=== PATIENT | male | born 1940 | race Caucasian/White ===

== ENCOUNTER → 2016-08-13 | Outpatient (CLI) | payer MEDICARE ==
--- NOTE | 2016-08-13 14:12 | MRI ---
EXAM DESCRIPTION: Lumbar Spine w/o Contrast CLINICAL HISTORY: DISC DISPLACEMENT COMPARISON: June 01, 2007 TECHNIQUE: MRI of the lumbar spine is performed according to our usual protocol with axial and sagittal multi sequence imaging. FINDINGS: Vertebral body height and marrow signal are normal. There is disc desiccation at every level with intervertebral disc height loss from L3-4 through L5-S1. Laminectomies of L3-4 and L4-5 noted. Conus terminates at L1. It appears unremarkable. Likely aneurysm of the infrarenal abdominal aorta which is incompletely visualized on today's study. It measures 4 cm in diameter. L1-L2: 3 mm circumferential disc osteophyte complex, facet degeneration and ligamentum flavum thickening noted. The midline diameter of the spinal canal is narrowed to 8 mm. Mild bilateral neural foraminal narrowing noted. L2-3: Circumferential disc osteophyte complex, ligamentum flavum thickening and facet degeneration noted. The midline diameter of the spinal canal is narrowed to 8.5 mm. There is mild left neural foraminal narrowing. L3-4: Laminectomy noted. The AP diameter of the thecal sac is widely patent measuring 1.5 cm. There is bilateral facet degeneration. There is a synovial cyst which projects medially from the left facet. This measures approximately 8 mm x 6 mm in diameter. It narrows the transverse diameter of the thecal sac to approximately 8.6 mm. There is moderate left and right neural foraminal narrowing. No definitive exiting nerve root contact. L4-5: Laminectomy noted. Circumferential disc osteophyte complex. There is peripheralization of the nerve roots which can be seen in the setting of arachnoiditis. Moderate bilateral neural foraminal narrowing noted. L5-S1: Facet degeneration and a 4 mm circumference of disc osteophyte complex with posterior central annular tear. Likely small synovial cyst projecting in the lateral recess from the left medial facet. The midline diameter of the spinal canal is adequate at 12 mm. There is moderate bilateral neural foraminal narrowing with contact of the bilateral L5 nerve roots. There is contact of the left descending S1 nerve root due to narrowing of the left lateral recess. IMPRESSION: 1. Today's exam demonstrates evidence of previous L3-4 and L4-5 laminectomies. While the thecal sac is widely patent at these levels there is suggestion of peripheralization of the nerve roots which can be seen in setting of arachnoiditis. 2. Please see above for additional findings including descriptions of descending and exiting nerve root contact. These findings could result in radiculopathy. The patient is symptomatic. Electronically signed by: Bruce Acosta MD 08/13/2016 2:12 PM IMMIGRATION CASE WORKER
== END | disposition home or self-care (01) ==
LOC: MRI 10:00
PROVIDERS: ATTEND Family Medicine
DX: M51.27 Other intervertebral disc displacement, lumbosacral region (principal)

== ENCOUNTER → 2016-09-21 | Outpatient (CLI) | payer MEDICARE | LOC: YCFC.O 11:07 | PROVIDERS: ATTEND Anesthesiology Pain Medicine | DX: Z79.891 Long term (current) use of opiate analgesic (principal) ==

== ENCOUNTER 2016-10-19 11:00 | Day surgery (SDC) | payer MEDICARE ==
[2016-10-19] MEDS ORDERED: methylPREDNISolone ACETATE 80 MG/ML VIAL ONE (11:13)
[2016-10-19] MEDS ORDERED: SODIUM CHLORIDE 0.9% 10 ML VIAL ONE (11:13)
[2016-10-19] MEDS ORDERED: SODIUM BICARBONATE VIAL 50 MEQ/50 ML VIAL ONE (11:13)
[2016-10-19] MEDS: LIDOCAINE 1% MPF 5 ML VIAL ONE ×2 (12:40→12:42)
[2016-10-19 12:53] VITALS: BP 207/99; TEMP 97.9; O2SAT 97
== END 2016-10-19 13:05 | disposition home or self-care (01) ==
LOC: AMB 11:00
PROVIDERS: ATTEND Anesthesiology Pain Medicine
DX: M96.1 Postlaminectomy syndrome, not elsewhere classified (principal); M54.16 Radiculopathy, lumbar region; F17.210 Nicotine dependence, cigarettes, uncomplicated; Z88.0 Allergy status to penicillin; Z88.8 Allergy status to other drugs, medicaments and biological substances
CPT/HCPCS: 62323; 76000; J1030

== ENCOUNTER 2016-11-16 05:40 | Day surgery (SDC) | payer MEDICARE ==
[2016-11-16] MEDS ORDERED: SODIUM BICARBONATE VIAL 50 MEQ/50 ML VIAL ONE (10:14)
[2016-11-16] MEDS ORDERED: SODIUM CHLORIDE 0.9% 10 ML VIAL ONE (10:14)
[2016-11-16] MEDS ORDERED: methylPREDNISolone ACETATE 80 MG/ML VIAL ONE (10:14)
[2016-11-16] MEDS: LIDOCAINE 1% MPF 5 ML VIAL ONE ×2 (14:05→14:06)
[2016-11-16 14:15] VITALS: BP 188/107; TEMP 96.7; O2SAT 99
== END 2016-11-16 14:15 | disposition home or self-care (01) ==
LOC: AMB 05:40
PROVIDERS: ATTEND Anesthesiology Pain Medicine
DX: M51.16 Intervertebral disc disorders with radiculopathy, lumbar region (principal); M96.1 Postlaminectomy syndrome, not elsewhere classified; F17.210 Nicotine dependence, cigarettes, uncomplicated; Z88.0 Allergy status to penicillin; Z88.8 Allergy status to other drugs, medicaments and biological substances; Z79.899 Other long term (current) drug therapy
CPT/HCPCS: 62323; 76000; J1030

== ENCOUNTER → 2017-09-27 | Outpatient (CLI) | payer MEDICARE | LOC: GMAJ 16:54 | PROVIDERS: ATTEND Family Medicine | DX: Z12.5 Encounter for screening for malignant neoplasm of prostate (principal) ==

== ENCOUNTER 2018-12-09 08:43 | Observation (INO) | payer MEDICARE ==
--- NOTE | 2018-12-09 10:21 | CT ---
EXAM DESCRIPTION: Head CLINICAL HISTORY: left leg paresthesias COMPARISON: None TECHNIQUE: Noncontrast transaxial CT images of the head are obtained from base to vertex. This exam was performed according to our departmental dose-optimization program, which includes automated exposure control, adjustment of the mA and/or kV according to patient size and/or use of iterative reconstruction technique. FINDINGS: The midline structures are not displaced. Sulci are age-appropriate. There are areas of decreased attenuation in the periventricular white matter and the white matter of the centrum semiovale. There is no evidence of mass, mass-effect, hydrocephalus, or acute intracranial hemorrhage. No abnormal extra axial fluid collection is seen. Bone windows show no evidence of depressed skull fracture. Moderate calcifications of the intracranial carotid arteries. The visualized paranasal sinuses are unremarkable. IMPRESSION: 1. Age-appropriate atrophy with evidence of old small vessel ischemic type changes seen. 2. No acute abnormality is seen on noncontrast CT of the head. Electronically signed by: Crow Osorio MD 12/09/2018 10:19 AM CDT
--- NOTE | 2018-12-09 10:27 | CT ---
EXAM DESCRIPTION: Lumbar Spine CLINICAL HISTORY: left leg paresthesias COMPARISON: None TECHNIQUE: Non contrast transaxial CT images of the lumbar spine are obtained with coronal and sagittal reconstructed images. This exam was performed according to our departmental dose-optimization program, which includes automated exposure control, adjustment of the mA and/or kV according to patient size and/or use of iterative reconstruction technique . FINDINGS: GENERAL Lumbar vertebral body heights are maintained. Osseous structures are diffusely osteopenic. Straightening of the normal lumbar lordosis is seen. Moderate to severe anterior disc bulging and marginal endplate osteophytes throughout the lower thoracic to lumbar spine are seen. Infrarenal abdominal aortic aneurysm status post endograft placement with [place] [employer] [place] aneurysm sac measures 4.2 cm. Recommend follow-up imaging per endograft protocol. Dilatation of the distal thoracic to proximal abdominal aorta measures 3.3 cm. L1-2 Mild posterior disc space narrowing, mild facet arthrosis. Broad-based disc bulge. Mild spinal canal stenosis and mild bilateral foraminal encroachment is seen. L2-3 Moderate posterior disc space narrowing with moderate bilateral facet arthrosis results in mild spinal canal stenosis and mild bilateral foraminal encroachment. L3-4 Severe disc space narrowing and vacuum disc with endplate sclerotic changes. Moderate facet hypertrophic and degenerative changes are seen. Resection of ligamentum flavum suspected. Posterior circumferential disc osteophytic ridging is seen. No spinal canal stenosis. At least moderate bilateral foraminal encroachment is seen. L4-5 Severe posterior disc space narrowing and sclerotic endplate changes with mild vacuum disc. L4 laminectomy changes. Mild facet hypertrophic and degenerative changes. No spinal canal stenosis. Moderate to severe bilateral bony foraminal encroachment is seen. L5-S1 Moderate diffuse disc space narrowing and vacuum disc. Posterior circumferential ridging disc osteophyte complex and mild facet hypertrophic and degenerative changes. Mild spinal canal stenosis is seen with severe left greater than right foraminal encroachment. IMPRESSION: Moderate to severe disc degenerative changes and facet arthropathy of the lumbar spine most significant from L3 through S1. L4 laminectomy changes. Severe bilateral L5-S1 and moderate to severe bilateral L4-5 foraminal encroachment is seen. Abdominal aortic endograft in place. Recommend follow-up imaging per endograft protocol. Electronically signed by: Crow Osorio MD 12/09/2018 10:25 AM CDT
--- NOTE | 2018-12-09 10:43 | ED.PDOC ---
History of Present Illness - General Chief Complaint: Cardiovascular Problem Stated Complaint: left leg Time Seen by Provider: 12/09/18 08:52 Source: patient, RN notes reviewed, Vital Signs reviewed Exam Limitations: no limitations - History of Present Illness Initial Comments: 78 yo male c/o altered sensations to his left leg. Denies having leg weakness. States he was asymptomatic when he went to be last night & woke up with it this morning. No previous episodes. 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 Timing/Duration: 1-3 hours Severity: mild Improving Factors: nothing Worsening Factors: nothing Associated Symptoms: denies symptoms Allergies/Adverse Reactions: Allergies Cyclobenzaprine [From Flexeril] Allergy (Unknown, Verified 12/09/18 08:56) Iodine Allergy (Unknown, Verified 12/09/18 08:56) Penicillin G Allergy (Unknown, Verified 12/09/18 08:56) Home Medications: Ambulatory Orders Gabapentin 900 mg PO BEDTIME 11/10/14 Gabapentin [Neurontin] 600 cap PO BID 11/10/14 Tizanidine HCl [Zanaflex] 4 mg PO TID PRN 11/10/14 Tramadol HCl 50 mg PO TID PRN 12/09/18 Review of Systems - Review of Systems Constitutional: States: no symptoms reported EENTM: States: no symptoms reported Respiratory: States: no symptoms reported Cardiology: States: no symptoms reported Gastrointestinal/Abdominal: States: no symptoms reported Genitourinary: States: no symptoms reported Musculoskeletal: States: no symptoms reported. Denies: back pain, neck pain Skin: States: no symptoms reported Neurological: States: see HPI Hematologic/Lymphatic: States: no symptoms reported Past Medical History (General) - Patient Medical History Hx Seizures: No Hx Stroke: No Hx Asthma: No Hx of COPD: No Hx Cardiac Disorders: No Hx Congestive Heart Failure: No Hx Pacemaker: No Hx Hypertension: No Hx Diabetes: No Hx MRSA: No MRSA Source:: Wound Surgical History: other - Social History Hx Tobacco Use: Yes Hx Alcohol Use: No Hx Substance Use: No Hx Physical Abuse: No Hx Emotional Abuse: No Family Medical History - Family History Father Family History: Unknown Living Status: Hx Family;Other: unknown family histroy Physical Exam - Physical Exam General Appearance: Alert, Comfortable, No apparent distress Eye Exam: bilateral normal ENT Exam: normal ENT inspection Neck: supple Respiratory: lungs clear, normal breath sounds, no respiratory distress Cardiovascular/Chest: regular rate, rhythm, no edema Gastrointestinal/Abdominal: non tender, soft Back Exam: normal inspection, no vertebral tenderness Extremities Exam: non-tender, normal range of motion, no evidence of injury 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 12/09/18 11:13 I have spoken with tele-radiology & Dr. Martin. We have all rec. admissiom the neuro sxs & BP. He declines. 12/09/18 11:32 Patient now consents to hospitalization here. I have discussed it with Violetta Huff NP. - Results/Orders Results/Orders: Cr 1.82 ESR 32 CRP 0.7 - EKG/XRAY/CT EKG: Sinus, no ST T wave changes - NSR @ 85; LAD; nml intervals, QRS, ST segments & T waves CT Ordered: Yes - no acute process brain or L-spine - Consult/PCP Time Called: 10:50 - tele-neuro Consult Reason/Comments: rec transfer Departure - Departure Clinical Impression: Paresthesia of left lower extremity Hypertension Qualifiers: Hypertension type: unspecified Qualified Code(s): I10 - Essential (primary) hypertension Time of Disposition: 11:33 Disposition: Admit Patient Condition: Fair Home Medications: Ambulatory Orders Gabapentin 900 mg PO BEDTIME 11/10/14 Gabapentin [Neurontin] 600 cap PO BID 11/10/14 Tizanidine HCl [Zanaflex] 4 mg PO TID PRN 11/10/14 Tramadol HCl 50 mg PO TID PRN 12/09/18 Decision To Admit - Decistion To Admit Decision to Admit Reason: Admit from ER - uncontrolled HTN; left leg paresthesia Decision to Admit Date: 12/09/18 Decision to Admit Time: 11:34
[2018-12-09] MEDS ORDERED: cloNIDine HCL 0.1 MG TAB PO ONE (11:12)
--- NOTE | 2018-12-09 12:11 | HP ---
SUPERVISING PHYSICIAN: Dima Martin MD CHIEF COMPLAINT: Left leg pain and numbness as well as stroke-like symptoms. HISTORY OF PRESENT ILLNESS: This is a 78 year-old male patient who had been in his usual state of health and this morning he woke up and had altered sensations to his left leg. He was asymptomatic when he went to bed last night and woke up this morning with severe leg pain. He said it was numb and he felt like he could not walk on it. In the ambulance he was given some aspirin and nitroglycerin due to his systolic blood pressure being in the 200s and his diastolic blood pressure being in the 100s. He does have a long history of low back pain with radiculopathy. Initially, he was treated for stroke-like symptoms in the Emergency Room and there his vital signs on admission to the Emergency Room were temperature of 97.8, heart rate 93, blood pressure 182/102. His blood pressure went up to 207/112 and 211/123. His respiratory rate was 20, 02 saturation 92%on room air. Lab was drawn as well as had a head CT. The head CT shows: 1. Age appropriate atrophy with evidence of old small vessel ischemic type change is seen. 2. No acute abnormality see on non-contrast CT of the head. Lumbar spine CT shows moderate to severe degenerative changes seen and facet arthropathy of the lumbar spine, most significant for L3 through S1. L4 laminectomy changes, severe bilateral L5 to S1 and moderate to severe bilateral L4 to 5, foraminal encroachment seen. Abdominal aortic endograft in place. LABORATORY: WBC 10,000 with hemoglobin 15.4 and hematocrit 45.4. He had an ESR of 32. Electrolytes were basically unremarkable but BUN 29, creatinine 1.82. Liver enzymes were within normal limits. Urinalysis showed urine pH of H urine leukocyte esterase or small and 10 to 20 urine WBCs. He was given some Clonidine in the Emergency Room as well as some pain medication. His blood pressure did come down to the 180s over 90s. Neuro Telemed was contacted and they recommended that he be transferred to a larger hospital for a neurological workup. The patient refused. The Emergency Room doctor called his primary care physician, Dr. Dima Martin, and initially the patient refused to be admitted but after Dr. Martin talked to the patient's daughter he said that he would be admitted. He was admitted to monitor his neurological changes as well as to treat him for his hypertensive crisis. PAST MEDICAL HISTORY: 1. Abdominal aortic aneurysms.\ 2. Chronic renal insufficiency.. 3. Chronic obstructive pulmonary disease. 4. Hypertension. 5. Lumbar disk disease. 6. Lumbar radiculopathy. 7. Lumbar spondylosis. 8. Carotid artery stenosis. PAST SURGICAL HISTORY: 1. Umbilical hernia repair. 2. Abdominal aortic aneurysm repair. . 3. Lumbar spine surgery. 4. Right renal stent. 5. Appendectomy. OUTPATIENT MEDICATIONS: 1. Gabapentin. 2. Albuterol. 3. Tramadol. 4. Zanaflex. ALLERGIES: FLEXERIL, PENICILLIN. FAMILY HISTORY: Positive for renal failure and hypertension. SOCIAL HISTORY: He is with 3 children. He is retired, he lives in [place]. He smokes approximately one-half pack of cigarettes daily. He denies any ETOH or illicit drug use. REVIEW OF SYSTEMS: GENERAL: Negative for fever, fatigue or weight changes. HEENT: Negative for sinus symptoms, ear pain, vision changes or sore throat. RESPIRATORY: Negative for wheezing, coughing or shortness of breath. CARDIAC: Negative for chest pain, palpitations or tachycardia. GASTROINTESTINAL: Negative for nausea, vomiting, diarrhea, constipation. GENITOURINARY: Negative for hematuria, dysuria or polyuria. MUSCULOSKELETAL: Positive for back pain, negative for arthralgias, myalgias. NEUROLOGIC: As per history of present illness. SKIN: Negative for lesions or rashes. PHYSICAL EXAMINATION: VITAL SIGNS: Temperature 98.2, heart rate 98, blood pressure 176/92, respiratory rate 18, 02 saturation 98% on room air. GENERAL: This is a 78 year-old male patient who is sitting on his hospital bed. He is in no acute disease. HEENT: Normocephalic and atraumatic. Pupils are equal and reactive. His oropharynx is clear. NECK: Supple without mass. CHEST: Essential clear to auscultation bilaterally. There is equal rise and fall of the chest with inspiration and expiration. CARDIOVASCULAR: Regular rate and rhythm. ABDOMEN: Soft, nondisplaced, non-tender. Bowel sounds are positive. EXTREMITIES: No cyanosis, clubbing, or edema. His left leg is slightly bigger than his right leg. 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 He does complain of pain along the left outer leg that extends across the kneecap and across the front of his left lower leg that is consistent with the L4 and L5 dermatomes. Skin is warm and dry. BACK: Normal inspection. There is no tenderness. NEUROLOGIC: He is alert and oriented x3. Cranial nerves II through XII are grossly intact. Labs and films are as per the history of present illness. His carotid artery ultrasound shows: 1. Doppler evaluation of the bilateral carotids and vertebral arteries shows no hemodynamically significant stenosis, less than 45% diameter stenosis proximal left ICA. 2. Minimal amount of plaque seen in the carotid arteries bilaterally. Bilateral vertebral arteries show antegrade cephalad flow. All other labs and films have been reviewed via the EMR. ASSESSMENT: 1. Hypertensive crisis. 2. Leg pain and numbness, most likely neurologic pain origin. His pain is consistent with left L3, L4 and L5 injury. 3. History of lumbar radiculopathy on Neurontin. 4. Chronic low back pain. 5. History of abdominal aortic aneurysm with repair. 6. Chronic obstructive pulmonary disease without signs or symptoms of exacerbation. 7. Tobacco abuse. 8. Mild urinary tract infection. PLAN: We will place the patient in observation. He will have Clonidine as needed for his elevated blood pressure. I will start him on 10 mg of lisinopril. He will need a full workup from his primary care physician, Dr. Martin. I have also increased his Neurontin to 900 mg in the morning and in the afternoon and 1200 mcg at h.s. We discussed smoking cessation and I put patient on nebulizer treatments, both a.c. and h.s. His home medications were restarted. He will also receive a dose of Rocephin for his urinary tract infection and will await the cultures and monitor those as the results become available. He has also been on neuro checks and we will reevaluate his clinical condition in the morning, hopefully he can be discharged home with close followup with Dr. Martin as well as neurologist, Dr. Wade in [place]. He has PPI for ulcer prophylaxis as well as Lovenox for DVT prophylaxis and will continue to monitor closely and follow as needed. #[id number] [facility] [place] [facility]
[2018-12-09] MEDS ORDERED: SODIUM CHLORIDE 0.9% (FLUSH) 10 ML SYG IV PRN (13:08)
[2018-12-09] MEDS ORDERED: IV SET AND CAP CHANGE INJ INJ SCH (13:30)
[2018-12-09] MEDS ORDERED: traMADol HCL 50 MG TAB PO PRN (13:31)
[2018-12-09] MEDS ORDERED: tiZANidine 4 MG TAB PO PRN (13:31)
[2018-12-09] MEDS: LISINOPRIL 10 MG TAB PO SCH (13:57)
[2018-12-09] MEDS: ENOXAPARIN SODIUM 30 MG/0.3 ML SYG SUBCU SCH (13:57)
[2018-12-09] MEDS ORDERED: GABAPENTIN 300 MG CAP PO SCH ×3 (15:00→21:00)
--- NOTE | 2018-12-09 16:23 | US ---
EXAM DESCRIPTION: Carotid Duplex: ULTRASOUND. CLINICAL HISTORY: 78 years Male Tia COMPARISON: CT scan of the head today. TECHNIQUE: Transcutaneous scanning utilizing alejo-scale and Doppler modes to evaluate the bilateral carotid systems and vertebral arteries. Percentage of diameter of stenosis or no stenosis recorded will be based upon NASCET criteria. FINDINGS: Peak systolic/end diastolic (CM-Sec) CCA Right 57/13 Left 55/15. ICA Right proximal 49/16, distal 51/19. Left proximal 62/15, distal 63/14. Vertebral Right 44/12 Left 36/12. ECA (PS Only) Right 64 left 68. ICA/CCA peak systolic ratio: Right 0.9 Left 1.0 ICA/CCA end diastolic ratio: Right 1.5 Left 0.7 Vertebral arteries: antegrade flow. Comments: Atherosclerotic calcifications in the distal common carotid bulbs and proximal ICAs bilaterally. Spectral broadening in the proximal and mid left ICA. Diameter and area stenosis of the left common carotid bulb is 45% or less. Area and diameter stenosis of the distal left CCA is less than 25%. IMPRESSION: 1. Doppler evaluation of the bilateral carotid systems and vertebral arteries shows no hemodynamically significant stenoses.. Less than 45% diameter stenosis proximal left ICA 2. Minimal amount of plaque seen in the carotid arteries bilaterally. Bilateral vertebral arteries showed antegrade-cephalad flow. Electronically signed by: Donnie Carvajal MD 12/09/2018 4:21 PM CDT
[2018-12-09] MEDS ORDERED: HYDROcodone 5MG/APAP 325MG 1 EA TAB PO PRN (17:11)
[2018-12-09] MEDS ORDERED: HYDROcodone 5MG/APAP 325MG 1 EA TAB ONE (17:25)
[2018-12-09] MEDS: HYDROcodone 5MG/APAP 325MG 1 EA TAB PO PRN ×2 (17:37→21:44)
[2018-12-09] MEDS ORDERED: PANTOPRAZOLE SODIUM IV 40 MG VIAL ONE (19:36)
[2018-12-09] MEDS: SODIUM CHLORIDE 0.9% (FLUSH) 10 ML SYG IV SCH (20:38)
[2018-12-09] MEDS ORDERED: cefTRIAXone SODIUM 1 GM in SODIUM CHL 0.9% 50ML MIN-BAG+ 50 ML IVPB SCH (23:00)
[2018-12-09] MEDS ORDERED: SODIUM CHL 0.9% 50ML MIN-BAG+ 50 ML IVPB ONE (23:38)
[2018-12-09] MEDS ORDERED: cefTRIAXone SODIUM 1 GM VIAL ONE (23:38)
[2018-12-10] MEDS: HYDROcodone 5MG/APAP 325MG 1 EA TAB PO PRN ×3 (01:31→13:44)
[2018-12-10] MEDS ORDERED: cloNIDine HCL 0.1 MG TAB PO ONE (04:24)
[2018-12-10] MEDS ORDERED: PANTOPRAZOLE SODIUM IV 40 MG VIAL IV SCH (06:30)
[2018-12-10] MEDS: GABAPENTIN 300 MG CAP PO SCH ×2 (09:15→15:40)
[2018-12-10] MEDS: SODIUM CHLORIDE 0.9% (FLUSH) 10 ML SYG IV SCH (09:16)
[2018-12-10] MEDS: LISINOPRIL 10 MG TAB PO SCH (09:16)
[2018-12-10] MEDS ORDERED: methylPREDNISolone SODIUM SUC 125 MG/2 ML VIAL IV ONE (09:19)
[2018-12-10] MEDS: ENOXAPARIN SODIUM 30 MG/0.3 ML SYG SUBCU SCH (15:39)
[2018-12-10 16:41] VITALS: BP 147/85; TEMP 98.2; O2SAT 96
[2018-12-10] MEDS ORDERED: GABAPENTIN 400 MG CAP PO SCH (21:00)
[2018-12-11] MEDS ORDERED: methylPREDNISolone TAB 4 MG TAB PO ONE (09:00)
--- NOTE | 2018-12-12 08:32 | DS ---
SUPERVISING PHYSICIAN: Joel Tran MD DISCHARGE DIAGNOSIS: 1. Hypertensive crisis. 2. Leg pain and numbness, most likely neurologic pain origin. His pain is consistent with left L3, L4 and L5 injury. 3. History of lumbar radiculopathy on Neurontin. 4. Chronic low back pain. 5. History of abdominal aortic aneurysm with repair. 6. Chronic obstructive pulmonary disease without signs or symptoms of exacerbation. 7. Tobacco abuse. 8. Mild urinary tract infection. HISTORY OF PRESENT ILLNESS: This is a 78-year-old male patient who was in his usual state of health and the morning of admission he woke up and had altered sensations to his left leg. He was actually asymptomatic when he went to bed the night before and woke up the morning of admission with severe leg pain. He said it was numb and he felt like he could not walk on it. In the ambulance, he was given some aspirin and nitroglycerin due to his systolic blood pressure being in the 200s and his diastolic blood pressure being in the 100s. He does have a long history of low back pain with radiculopathy. Initially, he was treated for stroke-like symptoms in the Emergency Room and his vital signs on admission to the Emergency Room were temperature of 97.8, heart rate 93, blood pressure 182/102. His blood pressure went up to 207/112 and 211/123. His respiratory rate was 20, O2 saturation 92%on room air. He had a head CT which showed age-appropriate atrophy with evidence of old small vessel ischemic type changes, no acute abnormality see on non-contrast CT of the head. Lumbar spine CT shows moderate to severe degenerative changes and facet arthropathy of the lumbar spine, most significant for L3 through S1. L4 laminectomy changes, severe bilateral L5 to S1 and moderate to severe bilateral L4 to 5, foraminal encroachment seen. Abdominal aortic endograft in place. Laboratory showed WBC 10,000 with hemoglobin 15.4 and hematocrit 45.4. He had an ESR of 32. Electrolytes were basically unremarkable but BUN 29, creatinine 1.82. Liver enzymes were within normal limits. Urinalysis showed urine pH of H urine leukocyte esterase or small and 10 to 20 urine WBCs. He was given some clonidine in the Emergency Room as well as some pain medication. His blood pressure did come down to the 180s over 90s. [facility] was contacted and they recommended that he be transferred to a larger hospital for a neurological workup. The patient refused. The Emergency Room doctor called his primary care physician, Dr. Dima Martin, and initially the patient refused to be admitted but after Dr. Martin talked to the patient's daughter he said that he would be admitted. He was admitted to monitor his neurological changes as well as to treat him for his hypertensive crisis. HOSPITAL COURSE: The patient was placed in Observation. He was clonidine as needed for his blood pressure and was started on 10 mg of lisinopril. He had not been on any hypertensive prior to that. He did have sciatic like pain on that left leg and I increased his AM and afternoon Neurontin from 600 mg to 900 mg and his evening dose from 900 to 1200 mg. He also is a smoker and we discussed smoking cessation. He was placed on nebulizer treatments. He was also started on Rocephin for a urinary tract infection. Urine cultures were done. His neuro checks also were unremarkable. He was put on DVT prophylaxis with Lovenox and proton pump inhibitor for ulcer prophylaxis. He does see Dr. Martin as his primary care physician and Dr. Wade in [place] is his neurologist. His clinical picture improved. His blood pressure stabilized with systolic blood pressures from 130 to 152 and diastolic blood pressures from 81 to 98. The patient will be discharged home today in stable condition. LABORATORY: Followup labs today showed WBC 9.2 with hemoglobin 13.5, hematocrit 39.8. He did have an ESR of 32. His electrolytes were basically within normal limits. His BUN was 27 and his creatinine improved from 1.82 on admission to 1.5 today. His baseline creatinine runs between 1 to 1.5. Triglycerides were 123. LDH 99.1, HDL 39. Urine culture is pending. RADIOLOGY: Carotid artery ultrasound showed a 1) Doppler evaluation of the bilateral carotid systems and vertebral arteries show no hemodynamically significant stenosis, less than 45% diameter stenosis proximal left internal carotid artery. 2) Minimal amount of plaque seen in the carotid arteries. Bilateral vertebral arteries show antegrade/cephalad flow. DISCHARGE PLAN: The patient will be discharged home in stable condition. He will continue his present medications and I have added lisinopril to his medications as well as Medrol Dosepak for the back pain and increased his gabapentin as noted in the hospital course. He received two doses of Rocephin. We will follow his cultures as they become available. He has a followup appointment with Dr. Dima Martin at 2:30 on 12/12/18. He should return to the hospital or followup with Dr. Martin for any problems or complications. He probably needs an MRI of his back and followup with Dr. Martin or his neurologist. DISCHARGE MEDICATIONS: 1. Gabapentin. 2. Lisinopril. 3. Medrol Dosepak. #[id number] MTDD
== END 2018-12-10 16:15 | disposition home or self-care (01) ==
LOC: ER 08:43 → MS 12:09 → INTOOBSV 12:09
PROVIDERS: ADMIT Nurse Practitioner Acute Care; ATTEND Nurse Practitioner Acute Care
DX: I16.9 Hypertensive crisis, unspecified (principal); I12.9 Hypertensive chronic kidney disease with stage 1 through stage 4 chronic kidney disease, or unspecified chronic kidney disease; R20.2 Paresthesia of skin; R20.0 Anesthesia of skin; M79.605 Pain in left leg; N39.0 Urinary tract infection, site not specified; M51.16 Intervertebral disc disorders with radiculopathy, lumbar region; G89.29 Other chronic pain; F17.210 Nicotine dependence, cigarettes, uncomplicated; J44.9 Chronic obstructive pulmonary disease, unspecified; N18.9 Chronic kidney disease, unspecified; I65.22 Occlusion and stenosis of left carotid artery; M47.26 Other spondylosis with radiculopathy, lumbar region; Z79.891 Long term (current) use of opiate analgesic; Z79.899 Other long term (current) drug therapy; Z88.0 Allergy status to penicillin; Z88.8 Allergy status to other drugs, medicaments and biological substances; Z82.49 Family history of ischemic heart disease and other diseases of the circulatory system; Z84.1 Family history of disorders of kidney and ureter
CPT/HCPCS: 96374; 96375; 96372; J0696; J1650; J2930; J7050; 80053 ×2; 87086; 80061; 36415 ×2; 81001; 86140; 85025 ×2; 83735; 85651; 70450; 72131; 93880; 94760 ×3; 97116; G8978; G8979; G8980; 97162; 99285; 93005; G0378

== ENCOUNTER → 2019-10-06 | Outpatient (CLI) | payer MEDICARE | LOC: BFHH 12:24 | PROVIDERS: ATTEND Family Medicine | DX: J44.9 Chronic obstructive pulmonary disease, unspecified (principal); I25.10 Atherosclerotic heart disease of native coronary artery without angina pectoris; M48.061 Spinal stenosis, lumbar region without neurogenic claudication; F17.210 Nicotine dependence, cigarettes, uncomplicated; I10 Essential (primary) hypertension; Z12.5 Encounter for screening for malignant neoplasm of prostate | CPT/HCPCS: 80053; 85025; G0103 ==